=== PATIENT | male | born 1975 | race Caucasian/White ===

== ENCOUNTER 2018-02-15 00:05 | Emergency (ER) | payer SELFPAY ==
[~2018-02-15] VITALS: Ht 172.7 cm; Wt 72.6 kg
[2018-02-15] MEDS ORDERED: LORazepam Inj 2mg/ml 1ml IM ONE (00:30)
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
[2018-02-15] MEDS ORDERED: BUSPAR10 MG ORAL (03:15)
[2018-02-15] MEDS ORDERED: TRAMADOL HCL50 MG ORAL (03:15)
[2018-02-15 05:23] VITALS: BP 112/68
[2018-02-15 05:25] VITALS: BP 112/68
--- NOTE | 2018-02-15 10:11 | Diagnostic Imaging Report ---
Indication: Neck pain. Technique: Continuous helical imaging of the cervical spine was obtained transaxially from the skull base to the upper thoracic spine. 2-D coronal and sagittal reformatted images were obtained. Automatic Exposure Control was utilized. Total Dose length Product (DLP): 515.[address] Dose Index Volume (CTDIvol): 21.88 mGy Comparison: None Findings: There is no acute fracture or malalignment identified. There is no soft tissue swelling identified. Moderate uncovertebral arthritis is demonstrated at C6-7 with the posterior facet arthropathy and endplate osteophyte formation, narrowed intervertebral disc. Severe right foraminal stenosis at this level demonstrated. Central canal stenosis and mild left foraminal stenosis suspected. Facet arthropathy also demonstrated at C4-5 and C7-T1 with associated foraminal stenosis. Impression: No acute injury Mild to moderate spondylosis [facility] has communicated the preliminary results to the Emergency Department. Their findings are largely concordant with this report. The CT scanner at [facility] is accredited by the [employer] and the scans are performed using dose optimization techniques as appropriate to a performed exam including Automatic Exposure control.
--- NOTE | 2018-02-15 10:55 | Diagnostic Imaging Report ---
Indication: Neck Pain Findings: 3 views of the cervical spine were obtained. The study is nondiagnostic and technically poor. The patient was difficult to image due to extreme pain and could not cooperate due to pain. IMPRESSION: Nondiagnostic study
== END 2018-02-15 05:25 | disposition home or self-care (01) ==
LOC: EDBD 00:05 → EMR 00:20
DX: M50.323 Other cervical disc degeneration at C6-C7 level (principal); F41.9 Anxiety disorder, unspecified; F15.10 Other stimulant abuse, uncomplicated; F17.200 Nicotine dependence, unspecified, uncomplicated
CPT/HCPCS: 72052; 72125; 80307; 96372; 99284